=== PATIENT | female | born 1935 | race Caucasian/White ===

== ENCOUNTER 2017-02-17 16:38 | Emergency (ER) | payer BC ==
[2017-02-17 15:34] LABS: BASOPHILS 0.4 %; BASOPHILS ABSOLUTE 0.03 10/3/uL (0.0-0.16); EOSINOPHILS 4.3 %; ER CBC TAT 0 Hrs 03 Mins; HEMOGLOBIN 13.5 g/dL (12.0-16.0); IMMATURE GRANULOCYTES 0.1 %; IMMATURE GRANULOCYTES ABSOLUTE 0.01 10/3/uL (0.0-0.11); LYMPHOCYTES 25.8 %; LYMPHOCYTES ABSOLUTE 1.79 10/3/uL (0.67-4.30); MEAN CORPUS HGB CONC 32.8 g/dL (32.0-36.0); MEAN CORPUSCULAR HEMOGLOB 29.5 pg (26.0-34.0); MEAN CORPUSCULAR VOLUME 89.9 fL (80-100); MEAN PLATELET VOLUME 9.6 fL (9.2-13.0); MONOCYTES 7.6 %; MONOCYTES ABSOLUTE 0.53 10/3/uL (0.21-1.20); NEUTROPHILS 61.8 %; NEUTROPHILS ABSOLUTE 4.29 10/3/uL (2.02-8.40); PLATELET COUNT 168 10/3/uL (150-400); RBC DISTRIBUTION WIDTH 14.2 % (12.0-16.0); RED CELL COUNT 4.57 10/6/uL (4.0-5.6)
[2017-02-17 15:35] LABS: HEMATOCRIT 41.1 % (36.0-48.0); MANUAL DIFF NO %
[2017-02-17 15:42] LABS: INTERNATIONAL NORMAL RATI 1.1 UNITS (-); PARTIAL THROMBO TIME 29.8 SEC (22.5-37.2); PROTIME (NOT ORD) 14.5 SEC (12.0-14.5)
[2017-02-17 15:50] LABS: BUN (BLOOD UREA NITROGEN) 20 MG/DL (6-23); CALCIUM, SERUM 8.9 MG/DL (8.5-10.4); CHEST PAIN PROFILE TAT 0 Hrs 19 Mins; CHLORIDE, SERUM 111 MMOL/L (96-112); CO2 (CARBON DIOXIDE) 29 MMOL/L (24-34); CREATININE 1.13 MG/DL (0.55-1.02); GFR AFRICAN AMERICAN 52 ML/MIN (>=60); GFR NON AFRICAN AMERICAN 45 ML/MIN (>=60); GLUCOSE, SERUM 82 MG/DL (60-99); POTASSIUM, SERUM 4.4 MMOL/L (3.5-5.3); SODIUM, SERUM 144 MMOL/L (135-148); TROPONIN I <0.02 NG/ML (<0.05)
[~2017-02-17 16:38] MED LIST: ALEVE220 MG PO; ASAB PO; AVALIDE1 TA2 PO; BETAPACE80 PO; BL FLAX SEED1000 MG OR; BYSTOLIC5 MG PO; CLOBETASOL0.053 EX; COREG25 PO; COZAAR100 MG PO; DIOV80 PO; DIOVAN HC2 PO; ELIQUIS 2.5 MG2.5 MG PO; FISH-EPA1000 MG PO; GGDM5ML PO; IMDUR30 PO; KLOR-CON M2020 MEQ PO; LIPITOR40 PO; MELA3 PO; NORV25 PO; PLAVIX PO; PROAIR HFA INH; SPIRO25 PO; SYN112 PO; SYN125 PO; [UNRECOGNIZED DRUG - OTHER] OP
[2017-06-10] MEDS ORDERED: SYN1 PO (19:42)
[2017-06-10] MEDS ORDERED: IMDUR30 PO (19:43)
[2017-06-10] MEDS ORDERED: LIPITOR40 PO (19:43)
[2017-06-10] MEDS ORDERED: BETAPACE80 PO (19:45)
== END 2017-02-17 18:55 | disposition home or self-care (01) ==
LOC: ER 16:38
PROVIDERS: Nurse Practitioner Family
DX: I10 Essential (primary) hypertension (principal); J45.909 Unspecified asthma, uncomplicated; I50.9 Heart failure, unspecified; N18.9 Chronic kidney disease, unspecified; I48.91 Unspecified atrial fibrillation; D64.9 Anemia, unspecified; Z88.5 Allergy status to narcotic agent; Z87.01 Personal history of pneumonia (recurrent); Z79.899 Other long term (current) drug therapy
CPT/HCPCS: 71010; 80048; 83690; 83735; 83880; 84484; 85025; 85610; 85730; 93005; 96374; 99284; A9270-GY; J0360